=== PATIENT | male | born 1940 | race Caucasian/White ===

== ENCOUNTER 2023-11-20 14:48 | Emergency (ER) | payer MEDICARE ==
[~2023-11-20] VITALS: Ht 172.7 cm; Wt 72.0 kg
[2023-11-20] MEDS ORDERED: NIRM1TAB9 PO (16:38)
[2023-11-20] MEDS ORDERED: PRED10TA23 PO (16:38)
[2023-11-20] MEDS ORDERED: ALBU8HFA INH (16:39)
[2023-11-20] MEDS ORDERED: AZIT250T PO (16:39)
[2023-11-20 16:52] VITALS: BP 141/83; PULSE 84; RESP 18; TEMP 98.3; O2SAT 97
== END 2023-11-20 16:53 | disposition home or self-care (01) ==
LOC: ER 14:49
DX: U07.1 COVID-19 (principal)
CPT/HCPCS: 36415; 71045; 87811; 99284